=== PATIENT | male | born 1950 | race Caucasian/White ===

== ENCOUNTER 2022-08-10 19:45 | Observation (INO) | payer MEDICARE ==
[~2022-08-10] VITALS: Ht 177.8 cm; Wt 88.2 kg
[2022-08-10] MEDS ORDERED: NS IV ONE (20:00)
[2022-08-10] MEDS ORDERED: ISOVUE-370 76% 100ML VIAL As Ordered ONE (20:05)
[2022-08-10 20:08] LABS: BASO % 0.4 % (0.0-1.0); EOS # 0.1 10^3/uL (0.0-0.5); EOS % 1.5 % (0.0-3.0); HEMATOCRIT 42.9 % (42.0-52.0); LYMPH # 2.4 10^3/uL (1.5-5.0); MEAN CORPUSCULAR HEMOGLOBIN 34.8 pg (27.0-33.0); MEAN CORPUSCULAR VOLUME 99.5 fl (80.0-96.0); MONO # 0.6 10^3/uL (0.0-0.8); MONO % 9.5 % (2.0-8.0); NEUTROPHILS # 3.5 10^3/uL (1.5-8.5); NEUTROPHILS % 52.3 % (36.0-66.0); PLATELET COUNT, AUTOMATED 131 10^3/uL (150-450); RED BLOOD COUNT 4.31 10^6/uL (4.30-6.10); WHITE BLOOD COUNT 6.8 10^3/uL (4.0-10.0)
[2022-08-10 20:25] LABS: INR 1.38; PROTHROMBIN TIME 17.2 SECONDS (12.5-14.5)
[2022-08-10 20:34] LABS: ABG BASE EXCESS -0.6 (-2.0-2.0); ABG HCO3 23.8 MEQ/L (22.0-26.0); ABG PARTIAL PRESSURE CO2 38.5 mmHg (35.0-45.0); ABG pH (ARTERIAL) 7.409 UNITS (7.350-7.450)
[2022-08-10 20:42] LABS: RSV AMPLIFICATION NEGATIVE (NEGATIVE)
[2022-08-10 20:47] LABS: CPK CREATINE PHOSPHOKINASE 284 U/L (39-308); CREATININE FOR GFR 1.33 MG/DL (0.70-1.30); GLOMERULAR FILTRATION RATE 56.1 (>42)
[2022-08-10 21:44] LABS: CPK CREATINE PHOSPHOKINASE 90 U/L (39-308)
[2022-08-11] MEDS ORDERED: ACETAMINOPHEN TAB 650MG DOSE (2X325MG) PO PRN (00:15)
[2022-08-11] MEDS ORDERED: MOM 30ML SUSPENSION UDC PO PRN (00:15)
[2022-08-11] MEDS ORDERED: MAALOX 30 ML SUSP *UDC PO PRN (00:15)
[2022-08-11] MEDS ORDERED: NS 1,000 ML IV SCH (00:15)
[2022-08-11] MEDS ORDERED: CLOP75TA2 PO (00:17)
[2022-08-11] MEDS ORDERED: FURO20TA2 PO (00:17)
[2022-08-11] MEDS ORDERED: AMIO100T3 PO (00:17)
[2022-08-11] MEDS ORDERED: ELIQ5TAB PO (00:17)
[2022-08-11] MEDS ORDERED: METO1TAB32 PO (01:45)
[2022-08-11] MEDS ORDERED: AMIO200T49 PO (01:45)
[2022-08-11] MEDS ORDERED: NITR4TASL SL (01:46)
[2022-08-11] MEDS ORDERED: RANE1000 PO (01:46)
[2022-08-11] MEDS ORDERED: RIBO400T PO (01:46)
[2022-08-11] MEDS ORDERED: ZETI10TA16 PO (01:46)
[2022-08-11] MEDS ORDERED: POTA-151 PO (01:46)
[2022-08-11] MEDS ORDERED: CRES40TA PO (01:46)
[2022-08-11] MEDS ORDERED: DIVA250T7 PO (01:46)
[2022-08-11] MEDS ORDERED: MAGN400T2 PO (01:46)
[2022-08-11] MEDS ORDERED: OMEP-173 PO (01:46)
[2022-08-11] MEDS ORDERED: FERR1TAB8 PO (01:46)
[2022-08-11] MEDS ORDERED: HOME MED LIST COMPLETE! XX SCH (01:50)
[2022-08-11 02:00] VITALS: BP 172/82
[2022-08-11 04:00] VITALS: BP 132/73
[2022-08-11 07:49] LABS: BASO % 0.4 % (0.0-1.0); EOS # 0.1 10^3/uL (0.0-0.5); EOS % 1.8 % (0.0-3.0); HEMATOCRIT 39.5 % (42.0-52.0); HEMOGLOBIN 13.1 g/dl (13.5-17.5); LYMPH # 1.8 10^3/uL (1.5-5.0); LYMPH % 36.5 % (24.0-44.0); MEAN CORPUSCULAR HGB CONC 33.2 g/dl (32.0-36.5); MEAN CORPUSCULAR VOLUME 102.6 fl (80.0-96.0); MONO # 0.5 10^3/uL (0.0-0.8); MONO % 10.5 % (2.0-8.0); NEUTROPHILS # 2.5 10^3/uL (1.5-8.5); NEUTROPHILS % 50.6 % (36.0-66.0); PLATELET COUNT, AUTOMATED 109 10^3/uL (150-450); RED BLOOD COUNT 3.85 10^6/uL (4.30-6.10); WHITE BLOOD COUNT 4.9 10^3/uL (4.0-10.0)
[2022-08-11 08:00] VITALS: BP 148/74
[2022-08-11 08:32] LABS: ALT/SGPT 22 U/L (12-78); BILIRUBIN,TOTAL 0.6 MG/DL (0.2-1.0); BLOOD UREA NITROGEN 15 MG/DL (7-18); CALCIUM LEVEL 8.2 MG/DL (8.8-10.2); CARBON DIOXIDE LEVEL 29 MEQ/L (21-32); CHLORIDE LEVEL 109 MEQ/L (98-107); CREATININE FOR GFR 1.09 MG/DL (0.70-1.30); GLOMERULAR FILTRATION RATE > 60.0 (>42); GLUCOSE, FASTING 109 MG/DL (70-100); MAGNESIUM LEVEL 2.1 MG/DL (1.8-2.4); SODIUM LEVEL 140 MEQ/L (136-145); TOTAL PROTEIN 5.5 GM/DL (6.4-8.2)
[2022-08-11] MEDS ORDERED: RANOLAZINE 500 MG ER TAB PO SCH (09:00)
[2022-08-11] MEDS ORDERED: POTASSIUM CHLORIDE 10MEQ SR TABLET PO SCH (09:00)
[2022-08-11] MEDS ORDERED: FERROUS SULFATE 325MG TAB PO SCH (09:00)
[2022-08-11] MEDS ORDERED: AMIODARONE 100MG TABLET (PACERONE) PO SCH (09:00)
[2022-08-11] MEDS ORDERED: APIXABAN 5 MG TAB (ELIQUIS) PO SCH (09:00)
[2022-08-11] MEDS ORDERED: OMEPRAZOLE 20MG CAP PO SCH (09:00)
[2022-08-11 10:20] VITALS: BP_SYST 149; BP_SYST 151; BP_SYST 171; BP_DIAS 75; BP_DIAS 80; BP_DIAS 81
[2022-08-11] MEDS ORDERED: CLOPIDOGREL 75 MG TAB PO SCH (21:00)
[2022-08-11] MEDS ORDERED: DIVALPROEX 250MG *ER* TAB PO SCH (21:00)
[2022-08-11] MEDS ORDERED: MAGNESIUM OXIDE 400MG TAB (MAG-OX) PO SCH (21:00)
[2022-08-11] MEDS ORDERED: METOPROLOL SUCC *XL* 25MG TAB (TopROL *XL*) PO SCH (21:00)
[2022-08-11] MEDS ORDERED: ROSUVASTATIN 10 MG TAB (CRESTOR) PO SCH (21:00)
[2022-08-11] MEDS ORDERED: EZETIMIBE 10MG TABLET (ZETIA) PO SCH (21:00)
== END 2022-08-11 10:57 | disposition home or self-care (01) ==
LOC: M ED 19:45 → M ED INP 19:46 → M ICU 08-11 02:13
PROVIDERS: ADMIT Internal Medicine; ATTEND Internal Medicine
DX: I95.9 Hypotension, unspecified (principal); D68.59 Other primary thrombophilia; R06.02 Shortness of breath; I10 Essential (primary) hypertension; G43.909 Migraine, unspecified, not intractable, without status migrainosus; I48.91 Unspecified atrial fibrillation; I25.10 Atherosclerotic heart disease of native coronary artery without angina pectoris; Z95.1 Presence of aortocoronary bypass graft; K21.9 Gastro-esophageal reflux disease without esophagitis; Z79.01 Long term (current) use of anticoagulants; Z79.899 Other long term (current) drug therapy; Z88.8 Allergy status to other drugs, medicaments and biological substances; Z87.891 Personal history of nicotine dependence
CPT/HCPCS: 36415; 36600; 71045; 71275; 74174; 80047; 80048; 80053; 82550; 82803; 83605; 83735; 83880; 84484; 85025; 85610; 85730; 87040; 87631; 93005; 93041; 94760; 96361; 96374; 97112; 97161; 99285; G0378; Q9967